=== PATIENT | female | born 1980 | race Caucasian/White ===

== ENCOUNTER 2021-11-01 12:20 | Emergency (ER) | payer BC ==
--- NOTE | 2021-11-01 12:58 | ERPHSYRPT ---
- History of Present Illness Time Seen by Provider: 11/01/21 12:49 Source: patient Exam Limitations: no limitations Patient Subjective Stated Complaint: Pt states "I am 9 weeks and I took a home covid test and I was positive. I am a little short of breath and have been coughing and my head is killing me." Triage Nursing Assessment: Pt presented alert and oriented X 3, skin pwd. Pt ambulates with an uprigth steady gait able to speak in clear full sentences. PT in no apparent respiratory distress. Pt has intermittant cough. Physician History: Patient is a 40-year-old female who presents at 9 weeks gestation in her second with a complaint of testing positive for Covid and her home test. She states she has had a headache and felt bad for throat for a week. She is being followed by an manager foreign in [facility]. Her first was uncomplicated other than the fact she had twin delivery of girls. Timing/Duration: week(s) (1) Cough Quality/Degree: dry cough Possible Cause: no prior episodes Modifying Factors: Improves With: coughing Associated Symptoms: headache Allergies/Adverse Reactions: amoxicillin Allergy (Severe, Verified 11/01/21 12:27) Swelling Penicillins Allergy (Severe, Verified 11/01/21 12:27) Swelling Home Medications: Metformin HCl 500 mg [Glucophage 500 MG] 500 mg PO BIDWM 11/01/21 [History] Hx Tetanus, Diphtheria Vaccination/Date Given: Yes Hx Influenza Vaccination/Date Given: No Hx Pneumococcal Vaccination/Date Given: No Immunizations Up to Date: Yes Travel Risk - International Travel Have you traveled outside of the country in past 3 weeks: No - Coronavirus Screening Are you exhibiting any of the following symptoms?: Yes Symptoms: Fever, Cough: New Onset, Headaches/Body Aches/Fatigue Close contact with a COVID-19 positive Pt in past 14-21 Days: No - Vaccine Status Have you recieved a Covid-19 vaccination: No - Review of Systems Constitutional: Fever, No Chills Eyes: No Symptoms Ears, Nose, & Throat: No Symptoms Respiratory: Cough, No Dyspnea Cardiac: No Chest Pain, No Edema, No Syncope Abdominal/Gastrointestinal: No Abdominal Pain, No Nausea, No Vomiting, No Diarrhea Genitourinary Symptoms: No Dysuria Musculoskeletal: No Back Pain, No Neck Pain Skin: No Rash Neurological: Headache, No Dizziness, No Focal Weakness, No Sensory Changes Psychological: No Symptoms Endocrine: No Symptoms All Other Systems: Reviewed and Negative - Past Medical History Pertinent Past Medical History: Yes Endocrine Medical History: Diabetes Type II - Past Surgical History Past Surgical History: No - Social History Smoking Status: Former smoker Exposure to second hand smoke: No Drug Use: none Patient Lives Alone: No - Female History Hx Last Menstrual Period: 08/2021 Hx Now: Yes Expected Date of Delivery: 06/05/22 - Nursing Vital Signs Nursing Vital Signs: Initial Vital Signs Temperature 98.4 F 11/01/21 12:21 Pulse Rate 88 11/01/21 12:21 Respiratory Rate 20 11/01/21 12:21 Blood Pressure 137/87 11/01/21 12:21 O2 Sat by Pulse Oximetry 96 11/01/21 12:21 Pain Scale Pain Intensity 5 - Physical Exam General Appearance: mild distress, alert Eye Exam: PERRL/EOMI, eyes nml inspection Ears, Nose, Throat Exam: normal ENT inspection, TMs normal, pharynx normal, moist mucous membranes Neck Exam: normal inspection, non-tender, supple, full range of motion Respiratory Exam: normal breath sounds, lungs clear, No respiratory distress Cardiovascular Exam: regular rate/rhythm, normal heart sounds Gastrointestinal/Abdomen Exam: soft, other ( heart tones were felt found with the Doppler at 160), No tenderness Back Exam: normal inspection, No CVA tenderness, No vertebral tenderness Extremity Exam: normal inspection, normal range of motion Neurologic Exam: alert, oriented x 3, cooperative, normal mood/affect, sensation nml, No motor deficits Skin Exam: normal color, warm, dry, No rash Lymphatic Exam: No adenopathy SpO2 Interpretation: normal SpO2: 96 O2 Delivery: Room Air - Course Nursing assessment & vital signs reviewed: Yes Ordered Tests: Active Orders 24 hr Category Date Time Status UA W/RFX UR CULTURE Stat Lab 11/01/21 14:13 Ordered Lab/Rad Data: Laboratory Results 11/01/21 Range/Units 13:27 Influenza Type A Ag NEGATIVE (NEGATIVE) Influenza Type B Ag NEGATIVE (NEGATIVE) RSV (PCR) NEGATIVE (Negative) SARS-CoV-2 (PCR) POSITIVE A (NEGATIVE) - Progress Progress: unchanged Air Movement: good Progress Note: 11/01/21 14:25 Patient will be discharged home arrangements have been made for monoclonal antibody therapy as an outpatient. Blood Culture(s) Obtained: No Antibiotics given: No - Departure Departure Disposition: Home Clinical Impression: COVID-19 affecting in first trimester Condition: Good Critical Care Time: No Additional Instructions: Patient has been agreeable to monoclonal antibody therapy.
[2021-11-01 14:10] VITALS: PULSE 80
[2021-11-01 14:19] LABS: INFLUENZA A NEGATIVE (NEGATIVE); INFLUENZA B NEGATIVE (NEGATIVE); RESPIRATORY SYNCTIAL VIRUS NEGATIVE (Negative)
[2021-11-01 14:21] LABS: SARS-CoV-2 Xpert Express POSITIVE (NEGATIVE)
[2021-11-01 14:53] VITALS: BP 145/90; O2SAT 98
[2021-11-01 15:02] LABS: Appearance CLOUDY (CLEAR); Bacteria FEW /HPF (NEGATIVE); Bilirubin NEGATIVE (NEGATIVE); Blood MODERATE Ery/ul (0-5); Epithelial Cells MANY /HPF (FEW); Glucose NEGATIVE (NEGATIVE); Ketones NEGATIVE (NEGATIVE); Leukocyte Esterase LARGE (NEGATIVE); Mucus SLIGHT /HPF (NEGATIVE); Nitrite NEGATIVE (NEGATIVE); Protein,Urine Dip 30 (Negative); Specific Gravity 1.021 (1.005-1.025); Urobilinogen 2 mg/dL (0-1); WBC >100 /HPF (0-5)
== END 2021-11-01 14:53 | disposition home or self-care (01) ==
LOC: ED 12:20
DX: O98.511 Other viral diseases complicating pregnancy, first trimester (principal); U07.1 COVID-19; R51.9 Headache, unspecified; Z3A.09 9 weeks gestation of pregnancy; R05.9 Cough, unspecified; R06.02 Shortness of breath; O24.111 Pre-existing type 2 diabetes mellitus, in pregnancy, first trimester; E11.9 Type 2 diabetes mellitus without complications; Z79.84 Long term (current) use of oral hypoglycemic drugs; Z20.828 Contact with and (suspected) exposure to other viral communicable diseases
CPT/HCPCS: 0241U; 81001; 87086; 99283